=== PATIENT | female | born 1945 | race Caucasian/White ===

== ENCOUNTER 2018-06-25 19:08 | Emergency (ER) | payer MEDICARE, OTHER ==
[~2018-06-25] VITALS: Ht 147.3 cm; Wt 41.3 kg
--- OUTSIDE RECORDS SUMMARY | ~2018-06-25 | XMS | Clinical Summary ---
Demographics + + + | Address | [address] [place] [address] | | | [place] [phone] | + + + | Home Phone | | + + + | Preferred Language | Unknown | + + + | Marital Status | Single | + + + | Cheondoism Affiliation | Unknown | + + + | Race | Unknown | + + + | Ethnic Group | Unknown | + + + Author + + + | Author | [facility] | | | and [place] | + + + | Organization | [facility] | | | and [place] | + + + | Address | Unknown | + + + | Phone | Unavailable | + + + Support + + +---------+ + | Name | Relationship | Address | Phone | + + +---------+ + | Joey Kerr | ECON | Unknown | | + + +---------+ + | Coretta Kerr | ECON | Unknown | | + + +---------+ + Care Team Providers + +------+ + | [facility] Center Medical And Lab Director Name | Role | Phone | + +------+ + | No, Unknownpcp | PP | | + +------+ + Allergies No Known Allergies Current Medications + + +-------+---------+------+------+-------+ | Prescription | Sig. | Disp. | Refills | Star | End | Statu | | | | | | t | Date | s | | | | | | Date | | | + + +-------+---------+------+------+-------+ | azithromycin | Take 250 mg by | | | | | Activ | | (ZITHROMAX) 250 mg | mouth. As directed | | | | | e | | tablet | | | | | | | + + +-------+---------+------+------+-------+ | ascorbic acid | Take 500 mg by mouth | | | | | Activ | | (VITAMIN C) 500 mg | Daily. | | | | | e | | tablet | | | | | | | + + +-------+---------+------+------+-------+ | polyethylene | Take 17 g by mouth. | | | | | Activ | | glycol (MIRALAX) | Once or twice daily | | | | | e | | packet | as needed | | | | | | + + +-------+---------+------+------+-------+ | oxybutynin | Take 5 mg by mouth 2 | | | | | Activ | | (DITROPAN) 5 mg | times daily. | | | | | e | | tablet | | | | | | | + + +-------+---------+------+------+-------+ | Multiple | Take one each by | | | | | Activ | | Vitamins-Minerals | mouth daily | | | | | e | | (MULTIVITAMIN PO) | | | | | | | + + +-------+---------+------+------+-------+ | Loratadine | Take 1 tablet by | | | | | Activ | | (CLARITIN PO) | mouth Daily as | | | | | e | | | needed. | | | | | | + + +-------+---------+------+------+-------+ | GuaiFENesin | Take by mouth as | | | | | Activ | | (MUCINEX PO) | needed. | | | | | e | + + +-------+---------+------+------+-------+ | docusate sodium | Take 250 mg by mouth | | | | | Activ | | (COLACE) 250 MG | Daily. | | | | | e | | capsule | | | | | | | + + +-------+---------+------+------+-------+ | Calcium Carbonate | Take 500 mg by mouth | | | | | Activ | | (CALCIUM OYSTER | 2 times daily. With | | | | | e | | SHELL PO) | meals | | | | | | + + +-------+---------+------+------+-------+ | anastrozole | Take 1 mg by mouth | | | | | Activ | | (ARIMIDEX) 1 mg | Daily. | | | | | e | | tablet | | | | | | | + + +-------+---------+------+------+-------+ | alendronate | Take 70 mg by mouth | | | | | Activ | | (FOSAMAX) 70 mg | every 7 days. | | | | | e | | tablet | | | | | | | + + +-------+---------+------+------+-------+ | acetaminophen | Take by mouth 2 | | | | | Activ | | (TYLENOL ARTHRITIS | times with meals | | | | | e | | PAIN) 650 MG CR | | | | | | | | tablet | | | | | | | + + +-------+---------+------+------+-------+ | LORazepam (ATIVAN) | Take 1 mg by mouth | | | | | Activ | | 1 mg tablet | every 4 hours as | | | | | e | | | needed. | | | | | | + + +-------+---------+------+------+-------+ Active Problems Not on file Immunizations + + + + | Name | Dates Previously Given | Next Due | + + + + | PNEUMOCOCCAL | 09/29/2009 | | | POLYSACCHARIDE | | | | 23-VALENT (PPSV23) | | | + + + + Social History + +-------+ +--------+------+ | Tobacco Use | Types | Packs/Day | Years | Date | | | | | Used | | + +-------+ +--------+------+ | Never Assessed | | | | | + +-------+ +--------+------+ + + + | Sex Assigned at | Date Recorded | | | | + + + | Not on file | | + + + Last Filed Vital Signs + + + + | Vital Sign | Reading | Time Taken | + + + + | Blood Pressure | - | - | + + + + | Pulse | - | - | + + + + | Temperature | - | - | + + + + | Respiratory Rate | - | - | + + + + | Oxygen Saturation | - | - | + + + + | Inhaled Oxygen | - | - | | Concentration | | | + + + + | Weight | 46.3 kg (102 lb 1.2 | 04/07/20121409 PDT | | | oz) | | + + + + | Height | 165.1 cm (5' 5") | 04/07/20121409 PDT | + + + + | Body Mass Index | 16.99 | 04/07/2012 1410 PDT | + + + + Plan of Treatment + + + + + | Health Maintenance | Due Date | Last Done | Comments | + + + + + | Vaccine: | | | | | Dtap/Tdap/Td (1 - | 2 | | | | Tdap) | | | | + + + + + | Vaccine: Zoster (1 | | | | | of 2) | 3 | | | + + + + + | Vaccine: | | 09/29/2009 | | | Pneumococcal 65+ | 1 | | | | Low/Medium Risk (2 | | | | | of 2 - PCV13) | | | | + + + + + | Vaccine: Influenza | | | | | (#1) | 8 | | | + + + + + Results Not on filefrom Last 3 Months Insurance + +--------+ +--------+ +---------+ | Payer | Benefi | Subscriber | Type | Phone | Address | | | t Plan | ID | | | | | | / | | | | | | | Group | | | | | + +--------+ +--------+ +---------+ | MEDICARE | MEDICA | [id number] | Medica | [phone]- | | | | RE | | re | [phone] | | | | PART A | | | | | | | AND B | | | | | + +--------+ +--------+ +---------+ | [employer] | MODA | [id number] | Medica | [phone] | | | MEDICAID HMO | HEALTH | | id | [phone] | | | | MDCD | | | | | | | HMO OR | | | | | + +--------+ +--------+ +---------+ + +--------+ +--------+ + + | Guarantor Name | Accoun | Relation to | Date | Phone | Billing Address | | | t Type | Patient | of | | | | | | | | | | + +--------+ +--------+ + + | KHAI KERR | Person | Self [birth year] Home: | [address] [facility] | | | al/Fam | | 1945 | [phone] | [place] [address] | | | erick | | [phone] | | + +--------+ +--------+ + +
--- OUTSIDE RECORDS SUMMARY | ~2018-06-25 | XMS | Clinical Summary ---
Demographics + + + | Address | [address] [place] [address] | | | [place] [phone] | + + + | Home Phone | | + + + | Preferred Language | Unknown | + + + | Marital Status | Single | + + + | Adventist Affiliation | Unknown | + + + | Race | Unknown | + + + | Ethnic Group | Unknown | + + + Author + + + | Author | [facility] | | | and [place] | + + + | Organization | [facility] | | | and [place] | [...] Team Providers + +------+ + | Care Meat Selector Name | Role | Phone | + [...] +--------+ +---------+ | MEDICARE | MEDICA | [id number] | Medica | [phone]- | | | | RE | | re | [phone] | | | | PART A | | | | | | | AND B | | | | | + +--------+ +--------+ +---------+ | [employer] | MODA | [id number] | Medica | [phone] | | | MEDICAID HMO | HEALTH [...] | Self | [birth year] | Home: | [address] [facility] | | | al/Fam | | 1945 | [phone] | [place] [address] | | | erick | | | [phone] | | + +--------+ +--------+ + +
[~2018-06-25 19:08] MED LIST: ACETAMINOPHEN650 M1 PO; ALENDRONATE SOD70 MG PO; CALCIUM 600 +1 EAC7 PO; CLARITIN10 M2 PO; FEMARA2.5 MG NG; MULTIVITAMINS1 EAC7 PO; NAPROSYN500 MG PO; NORCO 5-325 TA1 EACH PO; NUPRIN200 MG PO; OXYBUTYNIN CHLOR5 MG PO; PAROXETINE HCL20 MG PO; VITAMIN C1000 M1 PO
== END 2018-06-25 20:26 | disposition home or self-care (01) ==
LOC: ED 19:08
DX: S00.03XA Contusion of scalp, initial encounter (principal); M81.0 Age-related osteoporosis without current pathological fracture; F03.90 Unspecified dementia, unspecified severity, without behavioral disturbance, psychotic disturbance, mood disturbance, and anxiety; R62.50 Unspecified lack of expected normal physiological development in childhood; Z88.8 Allergy status to other drugs, medicaments and biological substances; Z79.899 Other long term (current) drug therapy; W18.30XA Fall on same level, unspecified, initial encounter
CPT/HCPCS: 70450; 99283

== ENCOUNTER 2020-11-26 20:36 | Inpatient (IN) | payer MEDICARE, OTHER ==
[~2020-11-26] VITALS: Ht 147.3 cm; Wt 41.6 kg
[~2020-11-26 20:36] MED LIST changes: +ALEVE220 M1 PO; -FEMARA2.5 MG NG; +FEMARA2.5 MG PO
[2020-11-26] MEDS ORDERED: NYSTATIN100000 UN1 PO (21:46)
--- NOTE | 2020-11-27 00:15 | NUR ---
Pt arrives to floor via stretcher. Pt transferred to bed with 2PA. Vitals taken, fresh water given. CPOX in place, 02 at 2L via NC, spo2 at 98%. Pt nonverbal, able to follow verbal cues but not reply. Health hx limited due to communication. Brief changed with AUTOMOTIVE PARTS ADVISOR, pt postioned in bed, unable to visualize back as pt does not turn easily side to side and holds R side of neck indicating potential pain with turns. TV on, pt makes giggling noise and motions to it, left on. Call light in reach which patient has demonstrated ability to press button. Will continue to monitor
--- NOTE | 2020-11-27 00:33 | NUR ---
ASSISTED JACQUELINE GAMING CHANGED PATIENT'S INCONTINENT ATTENDS. PATIENT REPOSITIONED. BED ALARM ON FOR SAFETY.
--- NOTE | 2020-11-27 02:18 | NUR ---
Rounded on patient, in bed with eyes closed, HOB elevated. Resp even and unlabored. IVF infusing WNL. call light in reach. Will cont to monitor
--- NOTE | 2020-11-27 04:35 | NUR ---
Rounded on patient, resting in bed with eyes closed. Breathing even and unlabored. Call light in reach but will continue to check as unknown if pt intentionally uses call light.
--- NOTE | 2020-11-27 06:05 | NUR ---
Vitals and I/O completed. pt attends changed, x1 incontinence. IVF infusing WNL. Thoroughly explained all cares, gave pt time to process and attempted to reassure through process of brief changed. Pt calm and cooperative, assists with positioning/turning. Sips of water given. Call light in reach, will continue to monitor.
--- NOTE | 2020-11-27 06:31 | NUR ---
Pt arrived at midnight. Able to assist with transfers and turning, responds to verbal cues. ABX given and IVF infusing. Pt incontinent, attends in place. 2L 02 NC [address] in place, spo2 in 88-97 range. VSS. Rested quietly in bed, calm and cooperative with cares, explain procedures beforehand. Unknown if patient calls appropriately but able to hold and press button.
--- NOTE | 2020-11-27 07:30 | NUR ---
this rn received report from sammy lizarraga. pt awake and waving at this rn. pt smiling this am. pt non verbal at baseline. pt on 2l nc 95%
--- NOTE | 2020-11-27 07:47 | NUR ---
PATIENT WAS IN BED, PATIENT IS NON-VERBAL, INTRODUCTION WAS MADE, CALL LIGHT IN REACH, NOTHING ELSE TO REPORT AT THIS TIME
--- NOTE | 2020-11-27 08:35 | NUR ---
THIS RN IN PTS ROOM TO CHECK ON PT. PT SLUMPED IN BED AND SATING AT 89% ON 2L. GUANAKITO RN REPOSITIONED PT AND O2 SAT UP TO 95% ON 2L. PT ALSO GRABBING NECK TO SHOW THAT MOVEMENT OF IT IS PAINFL. THIS RN BACK IN ROOM TO PROVIDE PT WITH 650MG OF TYLENOL FOR PAIN.
--- NOTE | 2020-11-27 10:00 | NUR ---
PT OFF TO X-RAY
--- NOTE | 2020-11-27 10:55 | NUR ---
THIS RN RECEIVED REPORT FROM MARTIN THAT PT HAS A C2 FRACTURE AND THAT A C-COLLAR WILL NEED TO BE PLACED. CONTRREAS RN TO DISCUSS C-COLLAR WITH THIS RN AND REQUESTING ASSISTANCE FOR C-COLLAR PLACEMENT FROM .
--- NOTE | 2020-11-27 11:00 | NUR ---
TO CALL NEUROSURGEON TO DISCUSS IF IT IS SAFE TO PLACE C-COLLAR
--- NOTE | 2020-11-27 11:05 | NUR ---
STATED THAT NEUROSURGEON STATED IT WAS SAFE TO PLACE C-COLLAR ON. THIS RN IN ROOM WITH MARTIN PHILLIPS AND TO PLACE C-COLLAR. THIS RN HELD SPINE WHILE OTHER STAFF PLACED SMALL CHILD SIZE C-COLLAR.
--- NOTE | 2020-11-27 11:15 | NUR ---
VISITED WITH PATIENT AND [id number] IN ROOM. PATIENT IS NOT VERBAL, BUT IS ABLE TO COMMUNICATE WELL WITH FAMILY NORMALLY. PATIENT HAS NEEDED CARE DUE TO MENTAL DELAYS FOR LIFE. SHE LIVES WITH BROTHER KRISTIE AND [id number]-ATP ABIOLA. ABIOLA IS POA AND STATES PAID CAREGIVER. THEY PROVIDE ALL NEEDS. PATIENT USED TO FEED SELF, BUT IS VERY SLOW. LATELY HAS HAD SOME SWALLOW ISSUES. 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 SHE HAS BEEN AMBULATORY UNTIL A FALL LAST WEEK. SHE HAS A FWW. SHE FELL IN THE BATHROOM WHEN IDALIA WENT TO GET A NEW DEPEND. PATIENT WAS PULLING SELF UP WITH GRAB BAR AND SLIPPED AROUND AND HIT NECK ON WALL THEN DOWN. THEY TOOK HER TO PCP THE NEXT DAY SHE INDICATED HER NECK HURT. THEY DID XRAYS BUT HAD NOT HEARD OUTCOME. LAST NIGHT THEY BROUGHT PATIENT IN DUE TO PAIN AND FEVER. PATIENT HAS SLOWED DOWN IN ALL HER ABILITIES SINCE CANCER DIAGNOSIS. PATIENT HAS SNAP BENEFITS AND ABIOLA DOES NOT FEEL SHE IS AT RISK OF AFFORDING MEDS/FOOD/UTILITIES. THEY PREFER TO TAKE HER HOME AT DISCHARGE SHE "IS MOST COMFORTABLE AT HOME" BUT IF SHE NEEDS TRANSFER OR MAJOR TREATMENT SHE WANTS HER TO COME IN TO HELP MAKE DECISIONS. SHE STATES THEY KNOW HER TIME COULD BE LIMITED DUE TO THE CANCER. THEY ARE WORRIED THEY SWALLOW ISSUE COULD BE A METS TO THE THROAT. ABIOLA HAS PROVIDED COPY OF POA TO STAFF. THEY TRANSPORT PATIENT FOR ALL APPOINTMENTS. ALL THREE OF THEM HAD COVID IN SEPTEMBER. ABIOLA WAS THE ONLY ONE WHO NEEDED SOME OXYGEN AT HOME. THEY FEEL THEY HAVE ALL THEY NEED TO THIS POINT, MAYBE COULD USE A HOSPITAL BED AT SOME POINT. THEY FEEL SHE IS SAFE AT HOME. PATIENT FOLLOWS ALL CONVERSATION WITH EYES AND SMILES AND GESTURES ON OCCASION. MOSTLY WATCHES TV.
--- NOTE | 2020-11-27 11:20 | NUR ---
THIS RN IN PTS ROOM WITH MARTIN RN AND WERNER RN TO PLACE A PED SIZE 5 ON PT INSTEAD DUE TO THE SMALL ADULT SIZE NOT FITTING
--- NOTE | 2020-11-27 11:40 | NUR ---
THIS RN IN PTS ROOM WITH CONTRERAS PHILLIPS AND THEN SYLVIA PHILLIPS TO READJUEST PTS C-COLLAR. PT PLACED BACK IN IN SMALL ADULT COLLAR.
--- NOTE | 2020-11-27 12:23 | NUR ---
THIS RN PROVIDED EDUCATION ABOUT C-COLLARS TO THE BEST OF HER ABILITY TO PTS RADHA AT [facility] TIME
--- NOTE | 2020-11-27 13:15 | NUR ---
NO TRANSFER PLANNED AT THIS TIME. PATIENT IS NEEDING C-COLLAR THOUGH AND STAFF IS TRYING TO FIND WHAT CAN FIT WITH CAR SUPPLIER.
--- NOTE | 2020-11-27 14:13 | NUR ---
PT IS NON-VERBAL BUT FOLLOWED ME WITH HER EYES. PT HAD TV ON, BROTHER NOT IN ROOM AT THIS TIME. GAVE BLESSING, WILL FOLLOW NEEDED
[2020-11-27] MEDS ORDERED: ALBUTEROL2.5 MG/3 M INH (14:22)
--- NOTE | 2020-11-27 15:00 | NUR ---
THIS RN IN TO CHECK ON PT AND DO ASSESSMENT. PT SITTING UP AND IS NONVERBAL. FLUIDS GOING. C-COLLAR IN PLACE. DOES NOT FIT WELL BUT BEST FIT FOR COLLAR.
--- NOTE | 2020-11-27 16:45 | NUR ---
this rn in to check on pt. pt appears to be resting at this time
--- NOTE | 2020-11-27 17:52 | NUR ---
this rn notified of pts temp per policy. no new orders
--- NOTE | 2020-11-27 18:22 | NUR ---
PATIENT HAD VERY LARGE INC, MEGHA CARE, SKIN CARE, LINEN CHANGE DONE. NEW ATTENDS IN PLACE. RN IN ROOM. CALL LIGHT IN REACH. NO FURTHER NEEDS AT THIS TIME.
--- NOTE | 2020-11-27 19:05 | NUR ---
BEDSIDE REPORT RECEIVED FROM JACQUELINE TSAI. pt RESTING IN BED WITH EYES CLOSED, BREATHING EQUAL AND UNLABORED. 2L OXYGEN BY NC IN PLACE, SPO2 96% WITH CPOX IN PLACE. C COLLAR IN PLACE. BED ALARM SET AT THIS TIME FOR pt SAFETY.
--- NOTE | 2020-11-27 21:50 | NUR ---
pt AWAKE RESTING IN BED, INCONTINENT OF URINE. ATTENDS, LINENS CHANGED. REPOSITIONED IN BED WITH PILLOW UNDER LEFT HIP, HOB ELEVATED. C COLLAR IN PLACE. LUNG SOUNDS CLEAR UPPER LOBES, DIMINISHED IN BASES. TV OFF REQUESTED, pt VERBAL WITH MINIMAL RESPONSES TO QUESTIONS, UNABLE TO ANSWER ORIENATTION QUESTIONS. LIGHTS OFF IN ROOM. CALL LIGHT INR EACH. BED ALARM SET. IVF INFUSING WNL ORDERED.
--- NOTE | 2020-11-27 22:00 | NUR ---
V/S AND I&O'S TAKEN AND RECORDED. CHANGED PATIENT'S INCONTINENT ATTENDS. PATIENT REPOSITIONED. 2 PA. PRIMARY RN SANDI WAS WITH PATIENT.
--- NOTE | 2020-11-28 00:11 | NUR ---
pt AWAKE WHEN RN AND TUBE MOUNTER SINTA ENTER ROOM. REPOSITIONED WITH PILLOWS UNDER HIPS BILATERALLY AND HIGHER IN BED. CCOLLAR IN PLACE. BED ALARM ON. IVF INFUSING WNL ORDERED. CALL LIGHT IN REACH.
--- NOTE | 2020-11-28 03:00 | NUR ---
PATIENT'S INCONTINENT ATTENDS CHANGED. PATIENT REPOSITIONED.
--- NOTE | 2020-11-28 03:12 | NUR ---
CHECKED ON pt. AWAKE RESTING IN BED. INCONTINENCE NOTED. ATTENDS CHANGED. pt TENSE WITH TURNING STATES "MY BACK". PRN TYLENOL ADMINISTERED. ASSESSMENT COMPLETE. OXYGEN OFF PATIENT, SPO2 92%. C COLLAR IN PLACE. DRINKS OF WATER AND ENSURE PROVIDED. LIGHTS OFF IN ROOM. BED ALARM ON.
--- NOTE | 2020-11-28 05:46 | NUR ---
pt RESTING IN BED AWAKE AFTER LAB DRAW. VSS. ATTENDS CHANGED AFTER INCONTINENT VOID. REPOSITIONED WITH PILLOW UNDER RIGHT HIP, LEGS. C-COLLAR IN PLACE. DRINK OF WATER PROVIDED. IVF INFUSING WNL ORDERED. CALL LIGHT IN REACH.
--- NOTE | 2020-11-28 05:55 | NUR ---
pt RESTED ON AND OFF THIS SHIFT. C-COLLAR IN PLACE. INCONTINENT OF URINE, ATTENDS IN PLACE. TURN Q2H. KAYLIE LIFT. PRN TYLENOL FOR PAIN CONTROL. IVF INFUSING WNL THROUGHOUT SHIFT. VSS.
--- NOTE | 2020-11-28 08:06 | NUR ---
Patient awake in bed watching tv. C-Collar in place; no distress noted. Airway patent and head of bed elevated. Patient drinking water well with assist. No needs at this time. Bed alarm intact.
[2020-11-28] MEDS ORDERED: IBRANCE100 MG PO (09:05)
--- NOTE | 2020-11-28 09:33 | NUR ---
DR BISHOP STATES THE PT'S SISTER IS IRRATE ABOUT THE WAY THE PTS CARE WAS HANDLED ON ADMISSION, THAT IN PARTICULAR THERE WAS NO CT ORDERED. WOULD LIKE TO SPEAK TO ADMINSTRATION. CALLED BUDDER.
--- NOTE | 2020-11-28 10:07 | NUR ---
Tylenol 650mg po admin at this time.
--- NOTE | 2020-11-28 10:09 | NUR ---
Family at bedside visiting. No needs verbalized at this time.
--- NOTE | 2020-11-28 11:45 | NUR ---
Patient sitting up in chair. Family remains at bedside. Patient's family requesting a pain pill after patient eats her lunch. Family to call this RN when she is ready for her pain pill. Patient has no needs. Personal supplies and call light within reach. No needs.
--- NOTE | 2020-11-28 12:19 | NUR ---
Oxycodone 5mg po admin for generalized pain.
--- NOTE | 2020-11-28 12:20 | NUR ---
Patient placed on 1L of oxygen per nc for desaturation of 96% on room air.
--- NOTE | 2020-11-28 12:20 | NUR ---
Patient placed on 1L of oxygen per nc for desaturation level od 86% on room air. Post 02 placement pt oxygen increased to 95% on the 1L.
--- NOTE | 2020-11-28 13:02 | NUR ---
Patient sleeping in chair, respirations even and non labored. Patient remains on 1L oxygen per nc.
--- NOTE | 2020-11-28 13:24 | NUR ---
PATIENT IS SITTING UP IN HER CHAIR WATCHING TV. VITALS AND I&OS ARE DONE AND DOCUMENTED. AM CARE IS DONE. CALL LIGHT IS IN REACH. NO FURTHER NEEDS AT THIS TIME.
--- NOTE | 2020-11-28 14:46 | NUR ---
Patient resting in chair, respirations even and non labored. Patient remains on 1L oxygen. No distress noted. Patient has no needs. Call light within reach.
--- NOTE | 2020-11-28 18:00 | NUR ---
PATIENT IS SITTING UP IN HER CHAIR WATCHING TV. FRESH WATER GIVEN. VITALS AND I&OS ARE DONE AND DOCUMENTED. CALL LIGHT IS IN REACH. NO FURTHER NEEDS AT THIS TIME.
--- NOTE | 2020-11-28 19:00 | NUR ---
BEDSIDE REPORT RECEIVED FROM JACQUELINE MACKAY. pt UP IN CHAIR. C-COLLAR IN PLACE. SLEEPING, AWAKENS TO RNS IN ROOM FOR REPORT. pt WAVES, NO REQUESTS AT THIS TIME. 1L OXYGEN BY NC IN PLACE.
--- NOTE | 2020-11-28 21:01 | NUR ---
1PA WITH FWW FROM CHAIR TO BED. C COLLAR UP HIGH ON FACE, ADJUSTED WITH PURCHASING MANAGER AND RN PARVIZ ASSIST. pt PAINFUL WITH MOVEMENT AND ADJUSTMENT OF C COLLAR, GRIMACING, HOLING HEAD/NECK. PRN TYLENOL AND OXYCODONE ADMINISTERED FOR PAIN. ASSESSMENT COMPLETE. 1L OXYGEN BY NC IN PLACE. INCONTINENCE IN ATTENDS. ATTENDS CHANGED. REPOSITIONED TO RIGHT SIDE WITH PILLOWS UNDER HIPS. CALL LIGHT IN REACH.
--- NOTE | 2020-11-28 23:01 | NUR ---
CHECKED ON pt. RESTING IN BED WITH EYES CLOSED. C COLLAR ON. RR 18. LIGHTS OFF IN ROOM.
--- NOTE | 2020-11-29 00:41 | NUR ---
IV PUMP ALARMING. NEW BAG IVF INFUSING WNL. pt RESTING IN BED WITH EYES CLOSED. BREATHING EQUAL AND UNLABORED. LIGHTS OFF IN ROOM. C-COLLAR ON.
--- NOTE | 2020-11-29 01:28 | NUR ---
pt SLEEPING. AWAKENS TO VOICE. ATTENDS DRY. 1PA TO RESTROOM WITH FWW FOR 225 ML VOID. pt BACK IN BED. REPOSITIONED WITH PILLOWS UNDER HIPS BILATERALLY. ASSESSMENT COMPLETE. pt CLOSING EYES. LIGHTS OFF IN ROOM. BED ALARM ON FOR pt SAFETY.
--- NOTE | 2020-11-29 04:24 | NUR ---
CHECKED ON pt. RESTING IN BED WITH EYES CLOSED, BREATHING UNLABORED, RR 18. BED ALARM ON.
--- NOTE | 2020-11-29 06:23 | NUR ---
pt AWAKENS TO VOICE. VSS. 1PA WITH FWW TO RESTROOM FOR UNMEASURED VOID AND BACK TO BED. REPOSITIONED IN BED. PRN TYLENOL ADMINISTERED FOR PAIN CONTROL, pt HOLDING BACK OF HEAD WITH MOVEMENT. BED ALARM ON. LAB NOW IN ROOM.
--- NOTE | 2020-11-29 07:34 | NUR ---
Patient resting in bed, respirations even and non labored. C-collar intact. Patient has no distress noted. Personal supplies and call light within reach.
--- NOTE | 2020-11-29 09:26 | NUR ---
PATIENT IS SITTING UP IN HER CHAIR. FAMILY AT BEDSIDE. COFFEE GIVEN. VITALS ADLS, AND I&OS ARE DOCUMENTED. CALL LIGHT IS IN REACH. NO FURTHER NEEDS AT THIS TIME.
--- NOTE | 2020-11-29 09:58 | NUR ---
Oxycodone 5mg po admin for reports of posterior neck pain. C-Collar replaced with smaller one by JACQUELINE Castillo in ED.
--- NOTE | 2020-11-29 10:15 | NUR ---
Spoke with pts sister in law, Coretta. Pt sister denies needs to go home at time. They would like a hospital bed for psoitioning as pt is very painful when moved, at rest ,or repositions. They are considering hospice, but do not feel they are ready at this time. They feel pt would desire to return to the hospital for treatment. Pt rest quietly through my visit. IDALIA attempts to get pt to drink ensure. Dr Norman updated, family are in need of hospital bed.
--- NOTE | 2020-11-29 11:40 | NUR ---
PATIENT IN RECLINER WITH C-COLLAR ON. HER BROTHER AND [id number] ARE IN THE ROOM. PATIENT IS NOT EATING MUCH. FAMILY STATES SHE HASN'T BEEN EATING MUCH SINCE HER FALL LAST WEEK. SHE HAS DIFFICULTY CHEWING AND SWALLOWING. PATIENT HAS BREAST CANCER WHICH HAS SPREAD TO THE SPINE AND RIBS, PLUS A C2 FRACTURE HENCE THE NEED FOR THE NECK BRACE. SHE WILL DRINK SOME CHOCOLATE ENSURE AND LIKES CHOCOLATE PUDDING, APPLESAUCE WITH CINNAMON, SALMON, AND JOHNSON'S CHEESEBURGERS. DOES NOT LIKE YOGURT, SHELLFISH, OR PORK. SOMETIMES EATS COTTAGE CHEESE BUT IT IS NOT HER FAVORITE. ASSISTED DIET CLERKS IN GETTING LUNCH AND DINNER ORDER WRITTEN OUT TO SEE HOW SHE DOES WITH BLENDED CHICKEN NOODLE SOUP, PUREED HAMBURGER NOAM, MASHED POTATOES, AND PUREED CARROTS. DIET ORDER WILL NEED TO BE MODIFIED FOR APPROPRIATE CONSISTENCY.
--- NOTE | 2020-11-29 12:22 | NUR ---
Patient resting in chair, respirations even and non labored. Patient has no notable distress. Patient titrated to 1L oxygen per nc at this time. Sat level 96%.
--- NOTE | 2020-11-29 12:33 | NUR ---
Family back in room with patient. Water provided to family per their request.
--- NOTE | 2020-11-29 14:43 | NUR ---
Oxycodone 5mg po admin for reports of posterior neck pain. Patient placed to room air, sat level of 94% on ra.
--- NOTE | 2020-11-29 18:19 | NUR ---
Patient in bed resting, respirations even and non labored. Patient has no notable distress, airway patient. C-collar intact. No needs. Personal supplies and call light within reach. Patient tolerated few drinks of chocolate ensure at this time.
--- NOTE | 2020-11-29 19:24 | NUR ---
Dr. Norman notified of new onset of temp; 100.0f po. Also reported to Dr. Norman that patient's oxygen level decreased to mid 70's on room air. Patient placed to 2l oxygen per nc. Patient's oxygen increased to 96% on 2l. Tylenol 650mg po admin for temp at this time.
--- NOTE | 2020-11-29 21:43 | NUR ---
PT UP TO BR, WAS INCONTINENT AND SHE VOIDED CLEAR URINE, BACK TO BED WITH 1PA/FWW, WAS SLIGHTLY UNSTEADY AT FIRST, BETTER ON RETURN. O2 2LNC, LUNGS CLEAR BILAT, SATS 98%. PEDICATRIC C COLLAR IN PLACE DOES NOT FIT WELL, REPOSITONED. IVF INFUSING. GAB C/O PAIN, NO FLACC DISTRESS, ALL PROCEDURES EXPLAINED PRIOR TO, TOOK SIPS OF FLUIDS
--- NOTE | 2020-11-30 00:14 | NUR ---
awakes easily, on 2lnc, no distress, pediatric neck brace, repositioned. IVF infusig, attend dry, warm blanket given, took sip of fluid, call light at bedside, bed alarm on
--- NOTE | 2020-11-30 02:37 | NUR ---
Resting, no distress, o2 in place, c neck collar in place IVF infusing, repositions self
--- NOTE | 2020-11-30 04:36 | NUR ---
pt has slept most of this shift. O2 2Lnc, NO DISTRESS, CCOLLAR IN PLACE, REPOSITONED A COUPLE TIMES IT SLIDS UP TO HER MOUTH. TOLERATING WELL. IVF INFUSING, UP TO BR W 1PA/FWW, TOLERATED WELL. NO C/O OR S/SX PAIN PER FLACC SCALE. INCONTINENT OF URINE, SKIN CARE DONE. GARBLED SPEECH. TAKES SMALL SIPS OF FLUIDS, NO EMESIS
--- NOTE | 2020-11-30 05:01 | NUR ---
Repositioned in bed, incontinent of urine, skin care done, clean attend. 2/10 pain flacc scale . Medicated with Oxycodone 5mg po. took sips of fluids neck brace reposioned, linen changed. hob elevated. O2 2L NC in place
--- NOTE | 2020-11-30 07:16 | NUR ---
DR LA NOTIFIED OF +BC ( GRAM+ AEROBIC), NO NEW ORDERS RECEIVED
--- NOTE | 2020-11-30 07:17 | NUR ---
H&P, progress note, face sheet, RX for hospital bed faxed to [facility] per family request.
--- NOTE | 2020-11-30 09:34 | NUR ---
CALLED TO ROOM BY DAUGHTER IN LAW, WHO WAS VERY UPSET WITH THE HARD C-COLLAR, REASSURED HER THAT I WOULD BE GETTING A SOFT COLLAR, I IMMEDIATELY DID SO. Gabriel BALLARD IN ROOM WITH ME TO HELP STABILIZE PATIENT SOFT COLLAR WAS APPLIED. PATIENT WITH ONE PERSON ASSIST AND WALKER TO BATHROOM TO VOID, CLEANED OF URINE INCONTINENCE. PATIENT UP TO CHAIR, 2L O2 RESUMED, PATIENT ABLE TO HAVE 1/3 OF AN ENSURE, SIPS OF WATER AND SIPS OF COFFEE. SON AND DAUGHTER IN LAW INDICATED, "WE'D RATHER HAVE HER IN A SOFT COLLAR, THAN STARVE TO IN THAT OTHER ONE." DR. LA IN ROOM TO SEE PATIENT AND VISIT WITH FAMILY.
--- NOTE | 2020-11-30 10:00 | NUR ---
REPORT RECEIVED FROM NIGHT RN AND PT. CARE RESUMED. PT. WAS RESTING IN CHAIR. SOFT COLLAR IN PLACE AT THE NECK. PT. WAS NOT ON 02. PT. O2 SAT WAS 75% AND PT. PLACED ON 4L NC. HR 116. 02 SAT INCREASED TO 96% AND PT. TITRATED TO 2L NC AND MAINTAINING O2 SAT OF 94%. WILL CONTINUE TO MONITOR HR. LUNGS ARE COARSE IN UPPER LOBES AND DIM. IN BASES. PT.'S COUGH IS VERY WEAK. PT'S HR DOWN TO 107 AFTER A FEW MINUTES. FAMILY IN THE ROOM AND STATED THE PT. PATIENT ABLE TO SPEAK A FEW WORDS AND STATES SHE DOES NOT LIKE PUDDING. ELIO, PHYS. THERAPIST IN THE ROOM AND ASSISTED WITH AMBULATING PT. WITH FWW TO COMMODE. PT. COULD NOT VOID. PT. ASSISTED WITH REPOSITIONING AND LEFT RESTING WITH FAMILY AT BEDSIDE.
--- NOTE | 2020-11-30 10:24 | NUR ---
PT'S FAMILY STATED PT. APPEARED TO BE IN PAIN. PT. HAD HANDS CLENCHED, FACIAL GRIMMACING AND AT ONE POINT HELD HER NECK. PT. COULD NOT ANSWER IF SHE WAS IN PAIN. ADMIN. PRN OXYCODONE. PT. LEFT RESTING IN BED WITH FAMILY AT BEDSIDE.
--- NOTE | 2020-11-30 11:03 | NUR ---
PT. HAD AN INCONTINENT VOID IN BED. BEDDING AND ATTENDS CHANGED BY 2 STAFF. 4CM RED BLANCHABLE SPOT NOTICED ON RIGHT MID BACK. DRESSED WITH ALLEVYN.
--- NOTE | 2020-11-30 11:22 | NUR ---
Spoke with Coretta and updated [facility] is working on hospital bed. Georgie is sitting in a chair with staff feeding her. Cont. to plan for pt to dc to home when cleared medically.
--- NOTE | 2020-11-30 13:41 | NUR ---
PT ASLEEP, IV ALARM SOUNDING. JACQUELINE ALFARO INFORMED
--- NOTE | 2020-11-30 14:45 | NUR ---
PT. ATTENDS WET. CLEANED AND REPLACED ATTENDS. PT. REPOSITIONED TO SIDE. LUNGS ARE COARSE THROUGHOUT AND EXP. WHEEZES AUSC. IN THE RLL. PT HAS A WEAK NONPRODUCTIVE COUGH . PT. DOES NOT APPEAR TO BE IN PAIN. IV SITE WNL AND IVF RUNNING. PT. ENCOURAGED TO EAT AND HAD A FEW SIPS OF ENSURE AND WATER, BUT REFUSED ALL OTHER FOOD. SKIN FELT WARM AND AUX. TEMP. WAS 99.3. EXTRA BLANKETS REMOVED. WILL CONTINUE TO MONITOR.
--- NOTE | 2020-11-30 20:52 | NUR ---
IN TO GET PM VITALS, I&Os DONE, PT UP TO VOID, HEAVY 1PA WITH FWW TO THE TOILET, PT BACK TO BED AT THIS TIME, RN IN RM, NO FURTHER NEEDS
--- NOTE | 2020-11-30 20:53 | NUR ---
Up to br from chair, 1PA/FWW, O22L NC in place, Soft neck brace in place.back to bed, SOB with exertion noted. lungs dim with crackles at bases bilat auscultated. Back in bed, helps with reposioning. Bruising R hand healing, ying tender L side. IVf infusing. tolerated sips of ensure chocolate flavored. josef colored legs 1+ edema, elevated. Pleasant and cooperative. garbled speech. cognitive deficiencies chronic present
--- NOTE | 2020-11-30 21:23 | NUR ---
PT'S IV PUMP WAS BEEPING, IT IS NOW INFUSING FINE. PT IS RESTING WITH EYES CLOSED, CALL LIGHT IS CLOSE.
--- NOTE | 2020-11-30 21:59 | NUR ---
lasix iv 10mg given as per new orders
--- NOTE | 2020-11-30 23:57 | NUR ---
SL as per orders. Pt was incontinent of large amounts of urine, skin care done, bruised areas over burrocks and r side hip healing. skin care done, barrier cream, new attends in place, repositoned in bed. O2 3LNC. soft neck collar in place. oral care done, coop, awakes easily
--- NOTE | 2020-12-01 02:30 | NUR ---
IN TO TURN PT AND CHECK FOR INCONT VOID, CALLED FOR ASST FROM RN, CHANGED, PT BOOSTED, NO FURTHER NEED, RN IN FOR ASSESSMENT
--- NOTE | 2020-12-01 02:37 | NUR ---
TURNED, INCONTINENT OF URINE, ATTENDS CHANGED, BARRIER CREAM, RESD MEGHA. REPOSIONED IN BED, SOFT NECK COLLAR IN PLACE, LUNGS CLEAR BILAT. COOPERATIVE. O2 3LNC LEGS ELEVATED
--- NOTE | 2020-12-01 05:30 | NUR ---
Repositioned q2h, has been incontinent of large amounts of urine. Lasix IV. barrier cream and fresh attends, fresh gown too. All procedure explained, has some cognitive deficiencies, pleasant, some speech is clear, some garbled. O2 2L NC in place, lungs clear at this time, bilat soft C Collar in place pleasant and cooperative. bruised areas on arms, handss upper l arms and buttocks area healing. moves extremities, cautions w Left side. SL patent.
--- NOTE | 2020-12-01 06:18 | NUR ---
PT'S CALL LIGHT WENT ON. UPON ENTERING ROOM PT MUMBLED SOMETHING AND POINTED DOWN. THIS RN ASKED IF SHE IS WET THEN CHECKED HER ATTENDS AND THEY WERE WET. REMOVED PILLOW FROM UNDER L SIDE AND PT IS NOW LAYING FLAT WITH PILLOWS UNDER EACH ELBOW. WHEN ASKED IF SHE NEEDS ANYTHING ELSE SHE CLOSED HER EYES. CALL LIGHT IS CLOSE.
--- NOTE | 2020-12-01 08:30 | NUR ---
REPORT RECEIVED FROM NIGHT RN AND PT. CARE RESUMED. 2 MEDICAL ONCOLOGY PHYSICIAN IN THE ROOM ASSISTING PT. ON THE TOILET. PT. HAD A LARGE BM AND VOIDED. PT. ASSISTED BY 2 STAFF AND FWW BACK TO CHAIR AND GIVEN A BEDBATH AND SHAMPOO CAP. PT. LUNGS ARE DIM. IN THE BASES AND CLEAR IN UPPER LOBES. ON 2L O2 NC. PT. TOLERATED SWALLOWING TO TABLETS OF [place]. IV SITE WNL AND FLUSHED. NO EDEMA PRESENT AND LEGS ELEVATED. PT. IS MORE ALERT THAN YESTERDAY AND ASKED TO TURN THE LIGHTS OFF.
--- NOTE | 2020-12-01 11:13 | NUR ---
PATIENT ASKED TO GO TO THE BATHROOM. AMBULATED WITH 1PA AND FWW TO THE COMMODE. VOIDED AND HAS VERY SMALL BM. PT. AMBULATED BACK TO THE CHAIR AND HAD 1/3 OF ENSURE. PT. LEFT RESTING IN CHAIR WITH CURTAIN OPEN AND CALL LIGHT IN REACH.
--- NOTE | 2020-12-01 11:57 | NUR ---
PT ASLEEP IN CHAIR WITH PERSONAL BLANKET AND STUFFED ANIMAL. DID NOT DISTURB, WILL FOLLOW NEEDED
--- NOTE | 2020-12-01 13:00 | NUR ---
ROUNDING ON PT. AND PT. STATED SHE "HAS TO POOP". PT. ASSISTED BY THIS NURSE AND FWW TO COMMODE. CHAIR CHUX COVERED IN LOOSE STOOL. PT. HAD ANOTHER LOOSE STOOL IN COMMODE. PT. CLEANED AND HAS NEW GOWN. PT. REPOSITIONED TO SIDE IN BED. SHE REFUSED FOOD AND DRINK AND CLOSED HER EYES. PT'S SKIN FELT WARM AND TEMP. TAKEN AND WAS 98.3. PT. LEFT RESTING WITH CURTAIN OPEN AND BED ALARM ON.
--- NOTE | 2020-12-01 14:25 | NUR ---
ROUNDING ON PT. AND PT. ATTENDS AND CHUX SATURATED. PT. SIGNALED SHE NEEDED THE COMMODE. AMBULATED WITH 1PA AND FWW. HAD A LOOSE MEDIUM SIZE BM. CLEANED AND NEW ATTENDS IN PLACE. PT. UP TO THE CHAIR AND POSITIONED WITH PILLOWS. PT. HELD HER NECK AND GRIMMACED. ADMIN. PRN PAIN MED. PT. IV SITE WNL. LUNGS DIM. IN THE BASES. PT. ON 2L NC O2 AND 02 SAT. 95%. ORAL TEMP IS 99. PT. HAD A FEW SIPS OF ENSURE AND WATER, BUT STILL REFUSING FOOD. PT. LEFT RESTING IN CHAIR WITH CURTAIN OPEN AND CALL LIGHT IN HAND.
--- NOTE | 2020-12-01 16:23 | NUR ---
2PA REPOSITIONED PATIENT IN CHAIR. 2 PILLOWS ON LEFT SIDE OF PATIENT TO PROP HER UP PATIENT FAVORS LEFT SIDE. FAMILY IN ROOM. CALL LIGHT IN REACH
--- NOTE | 2020-12-01 16:34 | NUR ---
Spoke with pt and family. Coretta discussing Hospice. Asked if they are interested in Hospice now, as I thought they had declined. Coretta states it's up to her spouse as he is the pt's brother. He states he will discuss, but does not think she is ready for hospice. We discussed the bed, as it is ready at [facility] per Prasanna. They asked them not to deliver today as Coretta thought they might go to hospice, but doesn't think they will. Encouraged to get the bed on Friday as it will be inplace for dc and will be needed either way. We discussed hospice and not returning to the ER or hospital as it is comfort care. This is hard for the family. Reminded family, they don't have to make a decision now as Hospice will be there next week and next month.
--- NOTE | 2020-12-01 19:20 | NUR ---
BEDSIDE REPORT RECEIVED FROM JACQUELINE ALFARO. pt RESTING IN BED WITH EYES CLOSED, BREATHING UNLABORED. 2L OXYGEN BY NC IN PLACE. BED ALARM SET AT THIS TIME FOR pt SAFETY.
--- NOTE | 2020-12-01 21:50 | NUR ---
pt SIDWAYS IN BED. 2PA TO RESTROOM WITH WALKER FOR VOID, INCONTINENT IN ATTENDS. pt NON-VERBAL TO QUESTIONS AT THIS TIME. HOLDS NECK AND STATES "OUCH, IT HURTS". PRN TYLENOL ADMINISTERED FOR PAIN. pt BACK IN BED, REPOSITIONED WITH PILLOW UNDER LEFT HIP. NECK BRACE IN PLACE. ASSESSMENT COMPLETE. LUNG SOUNDS COARSE LLL. BED ALARM ON FOR pt SAFETY.
--- NOTE | 2020-12-01 23:05 | NUR ---
IV ANTIBIOTIC COMPLETE. pt SLEEPING, AWAKENS TO VOICE. TEMPERATURE CHECKED 98.9. BED ALARM ON. pt CLOSES EYES AND BACK TO SLEEP. BREATHING UNLABORED. 2L OXYGEN BY NC IN PLACE.
--- NOTE | 2020-12-02 01:25 | NUR ---
pt REPOSITIONED TO FLOATING ON PILLOWS. SLEEPING, AWAKENS EASILY TO VOICE AND BACK TO SLEEP. BREATHING UNLABORED, 2L OXYGEN BY NC IN PLACE.
--- NOTE | 2020-12-02 03:25 | NUR ---
IN TO REPOSITION PT IN BED, CHANGED PT ATTENDS DUE TO INCNT OD URINE, NO FURTHER NEEDS AT THID TIME
--- NOTE | 2020-12-02 03:48 | NUR ---
pt SLEEPING, AWAKENS TO VOICE. INCONTINENT OF URINE. ATTENDS CHANGED. 2PA TO REPOSITION WITH PILLOWS UNDER BOTH HIPS. pt GRABBING HEAD, GRIMACING, STATING "HURTS". PRN OXYCODONE ADMINISTERED. ASSESSMENT COMPLETE. LUNG SOUNDS WITH SOME COARSENESS LLL. 2L OXYGEN BY NC IN PLACE. LIGHTS OFF IN ROOM. pt STATES "NAP". BED ALARM ON.
--- NOTE | 2020-12-02 06:20 | NUR ---
IN ROOM WITH PRIMARY RN SANDI TO ASSIST IN GETTING AN IV STARTED. HAD ONCE UNSUCESSFUL ATTEMPT WHICH IS WRAPPED WITH GAUZE AND COBAN. SANDI RN HAD A SUCESSFUL START AND WE WERE ABLE TO DRAW BLOOD FOR LABS THIS AM.
--- NOTE | 2020-12-02 06:23 | NUR ---
pt SLEEPING, AWAKENS TO VOICE. NEW IV STARTED LEFT AC FOR ROUTINE ROTATION. pt TOLERATED WELL. VSS. AFEBRILE. pt INCONTINENT OF URINE. ATTENDS CHANGED. REPOSITIONED TO LEFT SIDE WITH PILLOW UNDER RIGHT HIP WITH RN HERMES ASSIST. BED ALARM ON. IV ANTIBIOTIC INFUSING.
--- NOTE | 2020-12-02 07:30 | NUR ---
REPORT RECEIVED FROM SANDI PHILLIPS. CRITICAL VALUE CALLED AT SHIFT CHANGE OF HGB 6, HCT 17.4. SANDI PHILLIPS CALLED DR LA AND RECEIVED ORDERS FOR TYPE & CROSS AND TO ADMINISTER 2 UNITS OF PRBCS. ORDERS IN, LAB CALLED. PT ASLEEP IN PT, VISUALIZED CHEST RISE AND FALL. PT REMAINS ON 2 L NC SATING 95%. FAMILY AWARE AND INFORMED CONSENT SIGNED. PT HAS CALL LIGHT IN REACH.
--- NOTE | 2020-12-02 07:32 | NUR ---
CRITICAL LAB VALUE RECEIVED FOR HG AND HCT. MD NOTIFIED BY PHONE. NEW ORDERS TO TYPE AND SCREEN AND CROSS MATCH FOR TWO UNITS REPEATED BACK. LAB PHONED, TO COME TO FLOOR TO DRAW LABS.
--- NOTE | 2020-12-02 10:15 | NUR ---
MARTIN ESTEVEZ RN, TO LAB TO BANKING [place] PRBCS. VERIFIED AT BEDSIDE BY THIS RN AND MARTIN PHILLIPS. PRE-TRANFUSION VSS. INITIAL TEMP 99.8 BLOOD INFUSING THROUGH PUMP STARTING AT 1010 AT 30 MLS/HR. THIS RN IN ROOM W/ PT FOR 15 MIN, NO DISTRESS VISUALIZE. 15-MIN VSS, TEMP 99.6. PT IS NON-VERBAL BUT ABLE TO COMMUNICATE BY SHAKING HEAD YES OR NO. SHAKES HEAD NO WHEN ASKED ABOUT HAVING ANY TRANSFUSION REACTION SYMPTOMS I.E. SOB, BACK PAIN, DIZZINESS ETC. PT FAMILY ALSO IN ROOM, ABDULLAHI KERR. INCREASED TRANSFUSION TO 75 MLS/HR PT TOLERATES. CALL LIGHT IN REACH. PT AND FAMILY INSTRUCTED TO CALL W/ ANY CONCERNS.
--- NOTE | 2020-12-02 11:00 | NUR ---
PT TEMP UP TO 100.6, DOWN TO 100.[address] LA AWARE. PT HAS BEEN RUNNING LOW-GRADE FEVER SINCE LAST NIGHT. NO NEW ORDERS.
--- NOTE | 2020-12-02 11:13 | NUR ---
2 PA TO BSC. PATIENT PRETTY IMPULSIVE, WAS ABLE TO FOLLOW SIMPLE COMMANDS. FAMILY IN ROOM. CALL LIGHT IN REACH, PILLOW UNDER LEFT SHOULDER, BED ALARM ON FOR SAFETY
--- NOTE | 2020-12-02 11:20 | NUR ---
PT TOLERATING TRANFUSION WELL. GIVEN 20 MG IV LASIX. INCREASED TRANSFUSION TO 100 MLS/HR. PT CONTINUES TO DENY TRANSFUSION REACTION SYMPTOMS. FAMILY IN ROOM. CALL LIGHT IN REACH.
--- NOTE | 2020-12-02 12:43 | NUR ---
2PA TO BSC WITH FWW. FAMILY IN ROOM. PATIENT INCONTINENT OF URINE, ALSO USED SBC. PATIENT USING SMALL SENTENCES WITH THIS RESEARCH EXECUTIVE. SWAYING ABCK AND FORTH"DANCING" GOOD SPIRITS. FAMILY ASSISTING WITH LUNCH. CALL LIGHT IN REACH, NOOTHER NEEDS AT THIS TIME
--- NOTE | 2020-12-02 14:15 | NUR ---
PRBC TRANSFUSION COMPLETED AT 1410. VSS. PT DENIES SYMPTOMS OF TRANSFUSION REACTION. VSS. CLINDAMYCIN HUNG AND INFUSING IN LOWER IV SITE, 22 G IN LFA. PT HAS BEEN MORE COMMUNICATIVE TODAY AND RESPONDS YES/NO TO QUESTIONS NOW. FAMILY REMAINS IN ROOM.
--- NOTE | 2020-12-02 14:48 | NUR ---
2ND UNIT OF BLOOD BEGAN INFUSING @ 1445. VERIFIED @ BEDSIDE W/ MARTIN ESTEVEZ RN. VSS. THIS RN IN ROOM TO MONITOR FOR FIRST 15 MIN. FAMILY MEMBER IN ROOM.
--- NOTE | 2020-12-02 15:45 | NUR ---
REASSESSED PT. SHOWING NO SYMPTOMS OF TRANSFUSION REACTION. VSS. PT UP TO BSC TO VOID, QUANTITY SUFFICIENT. FAMILY REMAINS IN ROOM.
--- NOTE | 2020-12-02 17:30 | NUR ---
HGB 6/ HCT 17.4. DR LA CALLED BY COLTEN JUNIOR. SEE NOTE.
--- NOTE | 2020-12-02 18:08 | NUR ---
DR LA NOTIFIED OF BLOOD COMPLETIION AND NO LABS BEING ORDERED. REPORTS SHE WILL PUT LAB ORDERS IN.
--- NOTE | 2020-12-02 18:21 | NUR ---
BLOOD TRANSFUSION COMPLETE @ 1745. PT VSS. PT APPEARS TO BE FEELING BETTER, TALKING MORE. LESS PALE, OVERALL COLOR IS BETTER. RADIAL AND PEDAL PULSES +2. DR. LA CALLED ABOUT LABS, ORDERS PUT IN BY MD FOR CMP AND CBC TOMORROW.
--- NOTE | 2020-12-02 19:10 | NUR ---
SHIFT REPORT RECEIVED FROM ASHLEY PHILLIPS. PT RESTING WITH EYES CLOSED. RR EVEN, UNLABORED. CALL LIGHT IN REACH.
--- NOTE | 2020-12-02 20:00 | NUR ---
PT REPOSITIONED. NO OTHER NEEDS AT THIS TIME. CALL LIGHT IN REACH.
--- NOTE | 2020-12-02 21:15 | NUR ---
IN TO GET VITALS, CHANGED PT BRIEF, BOOSTED AND PILLOW ADDED, NO FURTHER NEEDS
--- NOTE | 2020-12-02 21:47 | NUR ---
ASSESSMENT COMPLETED. PT REPOSITIONED, NECK COLLAR IN PLACE. SCHEDULED MED PROVIDED. IVs WNL, CDI, FLUSHED WELL. GCS 15. LUNG HAVE EXSPIRATORY WHEEZING IN ALL LOBES, COURSE CRACKLES IN RIGHT LOWER LOBE. HEART TONES REGULAR. ABD SOFT, NONTENDER, BOWEL TONES ACTIVE. CMS INTACT. NC @ 1L. NO OTHER NEEDS AT THIS TIME. CALL LIGHT IN REACH.
--- NOTE | 2020-12-03 | NUR ---
PT RESTING WITH EYES CLOSED. RR EVEN, UNLABORED ON 1L NC. PT REPOSITIONED. OFFERED ICE WATER, DECLINED. NO OTHER NEEDS. CALL LIGHT IN REACH.
--- NOTE | 2020-12-03 00:20 | NUR ---
IN WITH RN TO TURN PT
--- NOTE | 2020-12-03 02:00 | NUR ---
PT RESTING IN BED, EYES CLOSED. RR EVEN, UNLABORED ON 1L NC. C-COLLAR ON. PT REPOSITIONED. NO OTHER NEEDS AT THIS TIME. CALL LIGHT IN REACH.
--- NOTE | 2020-12-03 04:00 | NUR ---
PT REPOSITIONED. BRIEFS CHANGED. RED AREAS TO EACH BUTTOCK NOTED, AREAS CLEANED, DOES NOT APPEAR PAINFUL, BLANCHABLE. PT ACCEPTED A DRINK OF WATER. ASSESSMENT COMPLETED. RIGHT LUNG HAS CRACKLES IN BASE. NC @ 1L. IV WNL. NO OTHER NEEDS AT THIS TIME. CALL LIGHT IN REACH, RAILS UP, DOOR OPEN.
--- NOTE | 2020-12-03 05:56 | NUR ---
SCHEDULED MED PROVIDED. IV FLUSHED WELL. PT REPOSITIONED. BRIEFS DRY. NC @ 1L. DINK OF WATER ACCEPTED. NO OTHER NEEDS AT THIS TIME. CALL LIGHT IN REACH.
--- NOTE | 2020-12-03 07:10 | NUR ---
PT LYING IN BED. SHIFT REPORT RECIEVED BY RN. NO NEEDS AT THIS TIME. CALL LIGHT IN REACH.
--- NOTE | 2020-12-03 10:26 | NUR ---
ASSISTED PT 1P/FWW TO THE BATHROOM. TOLERATED WELL. SCHEDULED MEDS GIVEN. PT HAD A BM. WNL. PT HAD BEEN DRINKING ENSURE. DENIES PAIN. ASSESSMENT COMPLETE. LUNG SOUNDS CLEAR. BOWEL TONES ACTIVE. 1L NC 95% O2 SAT. DENIES SOB. PT UP IN CHAIR. PHYSICAL THERAPY IN ROOM. STATED THAT HE WILL COME BACK TO MEET WITH HER. CALL LIGHT IN
--- NOTE | 2020-12-03 11:04 | NUR ---
PATIENT IS SITTING UP IN HER CHAIR. VITALS AND I&OS ARE DONE AND DOCUMENTED. FRESH WATER GIVEN. CALL LIGHT IS IN REACH. NO FURTHER NEEDS AT THIS TIME.
--- NOTE | 2020-12-03 11:15 | NUR ---
PHYSICAL THERAPY IN ROOM WITH PATIENT.
--- NOTE | 2020-12-03 12:13 | NUR ---
ANSWERED PT CALL LIGHT. C/O PAIN. PRN PAIN MED TYLENOL GIVEN PER REQUEST. HAD HALF OF HER ENSURE. TOLERATED WELL. PT WILL TRY TO EAT MORE BITES OF MEAL AND ASSIST HER BACK TO BED.
--- NOTE | 2020-12-03 12:57 | NUR ---
PT 2P/ FWW FROM THE CHAIR TO BED. REPLACED DEPENDS. BUTTOCKS REDNESS AND BLANCHABLE NOTED. BARRIER CREAM ADMINISTERED. ALLEVYN INTACT. CHUX IN PLACE. REPOSITIONED PT IN BED. BLE ELEVATED WITH PILLOW SUPPORT. C COLLAR ON. IV SALINE LOCKED. BROTHER AND SISTER IN ROOM.
--- NOTE | 2020-12-03 15:29 | NUR ---
PT LYING IN BED. REPOSITIONED PT TO THE RIGHT SIDE WITH PILLOW SUPPORT. HOB ELEVATED. ASSESSMENT COMPLETE. ALLEVYN ON COCCYX AREA, CDI. LUNG SOUNDS CLEAR. PT WAS ASKED TO NOD HEAD IF HAVING PAIN. PT NODDED HEAD NO. PT HAD 237ML OF ENSURE. TOLERATED WELL. CALL LIGHT IN REACH.
--- NOTE | 2020-12-03 18:11 | NUR ---
PATIENT IS SITTING UP IN HER BED WATCHING TV. FRESH WATER GIVEN. VITALS AND I&OS ARE DONE AND DOCUMENTED. CALL LIGHT IS IN REACH. PATIENT REPOSITIONED AND TURNED. NO FURTHER NEEDS AT THIS TIME.
--- NOTE | 2020-12-03 19:15 | NUR ---
SHIFT REPORT FROM NURSE VENTURA. PT IN BED TURNED TO LEFT SIDE. PT WAVES THIS NURSE COMES INTO ROOM. PT DENIES NEEDS AT THIS TIME.
--- NOTE | 2020-12-03 20:40 | NUR ---
ROUNDED CHARGE. ASSISTED WITH CHANGING INCONTINENT ATTENDS. pt PAINFUL WITH MOVEMENT "IT HURTS". ATTENDS CHANGED, INCONTINENT VOID. ALLEVYN IN PLACE ON COCCYX, BACK, BOTH CDI. NO REDNESS NOTED ON BEHIND. PRIMARY RN ELIZABETH NOW IN ROOM TO ADMINISTER SCHEDULED MEDICATIONS AND PRN PAIN MEDICATION. NECK COLLAR IN PLACE.
--- NOTE | 2020-12-03 21:00 | NUR ---
ASSESSMENT COMPLETE. pt TOOK ORAL MEDS WELL WHEN GIVEN ONE AT A TIME WITH PLENTY TO DRINK BETWEEN. LARGER PILLS CUT INTO QUARTERS. ALLEVYN ON BUTTOCKS CDI, ALLEVYN ON BACK CDI. pt HAD BEEN INCONTINENT SO BED WAS REFRESHED AND NEW DEPENDS APPLIED. VSS. SPO2 93% ON 1L . pt HAD MOIST COUGH DURING BED CHANGE; THIS NURSE ATTEMPTED TO SUCTION LOOSE PHLEGM IN MOUTH ALTHOUGH pt SUCKS ON YANKAUER AND WILL NOT OPEN MOUTH. LUNG SOUNDS CLEAR, BOWEL TONES ACTIVE, pt POSITIONED WITH HOB ELEVATED. CALL LIGHT PLACED WITHIN REACH.
--- NOTE | 2020-12-03 22:57 | NUR ---
ANSWERED CALL LIGHT. 2 PA CHANGED PATIENT'S ATTENDS INCONTINENT OF URINE AND A SMEAR OF BOWEL MOVEMENT. CHANGED BED LINEN. PATIENT SPILLED CHOCOLATE ENSURE AND ICE WATER. PATIENT REPOSITIONED.
--- NOTE | 2020-12-04 01:35 | NUR ---
IN ROOM TO TURN PT. PT TURNED TO RIGHT TILT WITH PILLOW UNDER LEFT HIP/BACK. CALL LIGHT PLACED WITHIN REACH. NO FURHTER NEEDS AT THIS TIME.
--- NOTE | 2020-12-04 03:56 | NUR ---
IN ROOM TO TURN pt AND CHECK FOR INCONTINENCE. pt HAD BEEN INCONTINENT OF URINE. FRESH DEPENDS APPLIED. pt TURNED TO LEFT TILT WITH PILLOW UNDER RIGHT BACK AND HIP. CALL LIGHT WITHIN REACH. NO FURTHER NEEDS AT THIS TIME.
--- NOTE | 2020-12-04 05:45 | NUR ---
IN ROOM FOR MORNING ASSESSMENT AND TO TURN PT. VSS. PT TURNED TO RIGHT TILT WITH HOB ELEVATED. PT DRINKS WELL FROM STRAW. DEPENDS DRY AT THIS TIME. CALL LIGHT WITHIN REACH.
--- NOTE | 2020-12-04 07:10 | NUR ---
PT LYING IN BED. SHIFT REPORT RECIEVED BY RN. CALL LIGHT IN REACH.
--- NOTE | 2020-12-04 08:35 | NUR ---
ASSISTED PT TO THE BATROOM. 2P/FWW. TOLERATED WELL. REPLACED BRIEFS. INCONTX1. PT REPOSITIONED IN CHAIR. PT NODDED HEAD YES FOR YES. TYLENOL ADMINISTERED. PT EATING MEAL WITH ASSISTANCE OF RN MARTIN. TOLERATING WELL. SCHEDULED MEDS GIVEN. ASSESSMENT COMPLETE. LUNG SOUNDS CLEAR. BOWEL TONES ACTIVE. ALLEYVN IN PLACE ON COCCYX. CDI. CALL LIGHT IN REACH.
--- NOTE | 2020-12-04 08:50 | NUR ---
Called and spoke with Coretta, she confirms bed from [facility] has been delivered and Hospice will be calling them today. She states they are not ready for Hospice, but are seaking information. They will return to the hospital this morning. Updated per report this am with , he will dc Georgie today.
--- NOTE | 2020-12-04 09:24 | NUR ---
PATIENT IS SITTIGN UP IN HER CHAIR. VITALS AND I&OS ARE DONE AND DOCUMENTED. FRESH WATER GIVEN. CALL LIGHT IS IN REACH. NO FURTHER NEEDS AT THIS TIME.
[2020-12-04] MEDS ORDERED: CIPROFLOXACIN500 MG PO (09:39)
[2020-12-04] MEDS ORDERED: OXYCODONE HCL5 MG PO (09:40)
[2020-12-04] MEDS ORDERED: STIMULANT LAXA1 EACH PO (09:40)
--- NOTE | 2020-12-04 10:50 | NUR ---
Spoke with pt's brother in the [place] and he states Georgie is feeling down and they probably won't take her home today. I discussed with him, Dr. Denson is discharging her to home today. Let him know I will be to the room shortly, when I finish with another pt.
--- NOTE | 2020-12-04 11:32 | NUR ---
PT LYING ON LEFT SIDE WITH PILLOW SUPPORT. EYES CLOSED. RR WNL WITH UNLABORED BREATHING.FAMILY MEMBERS IN ROOM. CALL LIGHT IN REACH.
--- NOTE | 2020-12-04 11:40 | NUR ---
Spoke with pt's brother and Coretta at room. Coretta is now stating pt cannot go home as she is unable to drink and will be in 4 days if she cannot drink. Coretta is wanting pt to discharge with IV fluid and IV antibiotics. Updated pt is nnot needing this and she would require an RN to stay with her. Asked Elana RN, to be part of the conversation.Family updated by Elana pt is eating, drinking, and taking pills when cut in half without problem. She has been able to do so throughout the weekend. Pt is able to hold her own ensure and drink, she also has been able to feed self at times. Updated pt needs to be out of bed and up as much as possible. Family state understanding and wanting to know if they should call hospice. Elana states she doesn't think this is needed now as pt is almost back to baseline. Family would like [facility] for transportation. Will call and schedule for 1230-1pm.
--- NOTE | 2020-12-04 12:15 | NUR ---
DISCHARGE PAPER WORK GIVEN TO BROTHER AND CAREGIVER. THEY WERE CONCERNED ABOUT PT NOT BEING ABLE TO SWOLLOW PILLS. EDUCATION GIVEN HOW PT ABLE TO SWOLLOW CRUSHED MEDS WITH PUDDING. PHARMACY IN ROOM. EDUCATION GIVEN ON MEDICATIONS AND SIDE EFFECTS. CAREGIVERS VERBALIZED UNDERSTANDING. IV'S TAKEN OUT. CATHS INTACT. EDUCATION GIVEN ON S/S OF PNEUMONIA, CCOLLAR TO BE IN PLACE THROUGHOUT THE DAY AND WATCH FOR ANY REDNESS OR PRESSURE SORES. CAREGIVERS VERBALIZED UNDERSTANDING. EDUCATION GIVEN ON FREQUENT FLUID INTAKE AND SUGGEST GIVING CHOCOLATE ENSURES TO INCULDE WITH MEAL. NO QUESTIONS AT THIS TIME. NURSING PERSONNEL ASSISTED PT ON WHEELCHAIR TO VEHICLE.
--- NOTE | 2020-12-04 14:05 | NUR ---
PT ASLEEP, MAY DC TODAY. DID NOT DISTURB
== END 2020-12-04 12:30 | disposition home or self-care (01) | DRG 871 ==
LOC: ED 20:36 → MS 23:02
PROVIDERS: ADMIT Student in an Organized Health Care Education/Training Program; ATTEND Student in an Organized Health Care Education/Training Program
PROC: 30233N1 Transfusion of Nonautologous Red Blood Cells into Peripheral Vein, Percutaneous Approach (ICD-10-PCS; principal; 2020-12-02)
DX: A41.01 Sepsis due to Methicillin susceptible Staphylococcus aureus (principal); J15.211 Pneumonia due to Methicillin susceptible Staphylococcus aureus; J96.01 Acute respiratory failure with hypoxia; D61.818 Other pancytopenia; C79.9 Secondary malignant neoplasm of unspecified site; M84.58XA Pathological fracture in neoplastic disease, other specified site, initial encounter for fracture; Z20.822 Contact with and (suspected) exposure to COVID-19; N32.81 Overactive bladder; F39 Unspecified mood [affective] disorder; C50.919 Malignant neoplasm of unspecified site of unspecified female breast; G31.84 Mild cognitive impairment of uncertain or unknown etiology; M81.0 Age-related osteoporosis without current pathological fracture; D69.6 Thrombocytopenia, unspecified; E87.79 Other fluid overload; Z66 Do not resuscitate; Z88.8 Allergy status to other drugs, medicaments and biological substances; Z79.899 Other long term (current) drug therapy; Z79.83 Long term (current) use of bisphosphonates; Z90.11 Acquired absence of right breast and nipple
CPT/HCPCS: 36415; 51701; 71045; 72125; 80048; 80053; 81001; 83605; 83735; 84100; 85025; 86850; 86900; 86901; 86920; 87040; 87077; 87186; 87502; 97110; 97116; 97162; 97165; 97530; 99285-25; A9270; C9803; J0456; J0696; J1940; J3475; J7030; J7060; J7121; P9016; U0003